=== PATIENT | female | born 1995 | race Caucasian/White ===

== ENCOUNTER 2017-05-02 02:00 | Inpatient (IN) | payer OTHER ==
[2017-05-02 02:29] LABS: APPEARANCE,URINE CLEAR; BILIRUBIN,URINE NEGATIVE (NEGATIVE); GLUCOSE, URINE NEGATIVE (NEGATIVE); KETONES,URINE NEGATIVE (NEGATIVE); LEUKOCYTE ESTERASE,URINE NEGATIVE (NEGATIVE); NITRITE,URINE NEGATIVE (NEGATIVE); PROTEIN,URINE NEGATIVE (NEGATIVE); URINE SPECIFIC GRAVITY 1.004; UROBILINOGEN,URINE NEGATIVE mg/dL (<2.0)
[2017-05-02 02:50] LABS: URINE BARBITURATES SCREEN NEGATIVE; URINE METHADONE SCREEN NEGATIVE; URINE OPIATES LOW NEGATIVE; URINE PHENCYCLIDINE SCREEN NEGATIVE
[2017-05-02] MEDS ORDERED: RINGERS SOLUTION,LACTATED 300 ML IV ONE (03:48)
[2017-05-02] MEDS ORDERED: MISOPROSTOL 0.1 MG TABLET PV SCH (04:00)
[2017-05-02 04:06] LABS: ABSOLUTE BASOPHILS # (AUTO) 0.1 10^3/uL (0.0-0.2); ABSOLUTE EOSINOPHILS # (AUTO) 0.1 10^3/uL (0.0-0.6); ABSOLUTE LYMPHOCYTES (AUTO) 2.6 10^3/uL (0.5-4.7); ABSOLUTE MONOCYTES (AUTO) 1.1 10^3/uL (0.1-1.4); BASOPHILS % (AUTO) 0.6 % (0-2); EOSINOPHILS % (AUTO) 0.7 % (0-6); HEMATOCRIT 35.4 % (36.0-47.0); HEMOGLOBIN 11.9 g/dL (12.0-15.5); HGB HCT DIFFERENCE 0.3; LYMPHOCYTES % (AUTO) 17.3 % (13-45); MEAN CORPUSCULAR HEMOGLOBIN 29.7 pg (27.0-33.4); MEAN CORPUSCULAR HGB CONC 33.5 g/dL (32.0-36.0); MEAN CORPUSCULAR VOLUME 88 fl (80-97); MONOCYTES % (AUTO) 7.5 % (3-13); RED BLOOD COUNT 4.01 10^6/uL (3.72-5.28); RED CELL DISTRIBUTION WIDTH 13.7 % (11.5-14.0); SEGMENTED NEUTROPHILS % (AUTO) 73.9 % (42-78); WHITE BLOOD COUNT 14.8 10^3/uL (4.0-10.5)
[2017-05-02] MEDS ORDERED: MISOPROSTOL 0.1 MG TABLET ONE (04:11)
[2017-05-02] MEDS: RINGERS SOLUTION,LACTATED 1,000 ML IV PRN ×2 (04:17→20:11)
[2017-05-02] MEDS ORDERED: BENZOIN/ALOE VERA/STORAX/TOLU TINCTURE 60 ML TP ONE (08:09)
[2017-05-02] MEDS ORDERED: BUPIVACAINE HCL 0.25 % INJ/PF (2.5 MG/1 ML) 30 ML VIAL INFIL ONE (08:09)
[2017-05-02] MEDS ORDERED: NALBUPHINE HCL INJ 10 MG/1 ML AMPULE ONE (08:24)
[2017-05-02] MEDS ORDERED: OXYTOCIN/NORMAL SALINE 20 UNIT/1,000 ML RTUINJ ONE ×2 (08:42→18:01)
[2017-05-02] MEDS: OXYTOCIN/NORMAL SALINE 1,000 ML IV PRN ×2 (09:00→20:13)
--- NOTE | 2017-05-02 10:37 | L&D Progress Notes ---
PROGRESS NOTES Datetime Report Generated by CPN: 05/02/2017 10:36 PROGRESS NOTE Impression: Reassuring Heart Rate Plan: Continue Present Management; Induction Vital Signs : Reviewed; Within Normal Limits Comment: OOB on ball, breathing with UC's, Cat 1 strip Hsb sleeping in chair Irreg uc's FETUS A FHR - Baseline: 120 Monitoring: External US Variability: Moderate 6-25bpm Accelerations: 15X15 Decelerations: None SIGNATURE SIGNATURE: [id number] Assignment: Kamille Russell MD Signature: with User ID: Stephen : with User ID: [email or web address]
[2017-05-02] MEDS ORDERED: EPHEDRINE SULFATE INJ 50 MG/1 ML AMPULE ONE ×2 (11:51→11:53)
[2017-05-02] MEDS ORDERED: FENTANYL/BUPIVACAINE/NS/PF 200 MCG/100 ML RTUINJ EPI ONE (11:51)
[2017-05-02] MEDS ORDERED: FENTANYL CITRATE INJ/PF 100 MCG/2 ML AMPUL ONE ×3 (11:52→19:45)
[2017-05-02] MEDS ORDERED: PHENYLEPHRINE HCL INJ/PF 10 MG/1 ML SDV ONE (11:53)
--- NOTE | 2017-05-02 12:59 | L&D Progress Notes ---
PROGRESS NOTES Datetime Report Generated by CPN: 05/02/2017 12:58 PROGRESS NOTE Impression: Normal Progression of Labor; Reassuring Heart Rate Procedures: Epidural Placement Plan: Continue Present Management; Induction Vital Signs : Reviewed; Within Normal Limits Comment: Getting epidural, Cat 1 strip, last exam 5cm, uc's q 2-3 min, has tolerated labor well FETUS A FHR - Baseline: 120 Monitoring: External US Variability: Moderate 6-25bpm Accelerations: 15X15 Decelerations: None FETUS C SIGNATURE: [id number] Assignment: Kamille Russell MD Signature: with User ID: Stephen : with User ID: Stephen
[2017-05-02] MEDS ORDERED: MISOPROSTOL 0.2 MG TABLET ONE ×2 (14:10→18:25)
[2017-05-02] MEDS ORDERED: LIDOCAINE 1% INJ-PF (10 MG/ML) 30 ML SDV ONE (14:11)
--- NOTE | 2017-05-02 14:12 | L&D Progress Notes ---
PROGRESS NOTES Datetime Report Generated by CPN: 05/02/2017 14:12 PROGRESS NOTE Impression: Normal Progression of Labor; Reassuring Heart Rate Plan: Continue Present Management Vital Signs : Reviewed; Within Normal Limits Comment: comfortable with epidural, AROM clear fluid, 8100/vtx/-1 had several late decelerations, position changed, Pitocin stopped, moderate variability Decelerations resolved, pt. feeling more pressure, comfortable with epidural FETUS A Monitoring: External US Decelerations: Early; Late FHR Category: Category II FETUS C SIGNATURE: [id number] Assignment: Kamille Russell MD Signature: with User ID: Stephen : with User ID: Stephen
[2017-05-02] MEDS ORDERED: LIDOCAINE 2%/EPINEPHRINE INJ 20 ML VIAL ONE ×2 (15:16→17:47)
[2017-05-02] MEDS ORDERED: SODIUM BICARBONATE 8.4% INJ 50 MEQ/50 ML DISP.SYRIN ONE (15:19)
[2017-05-02] MEDS ORDERED: METOCLOPRAMIDE HCL INJ/PF 10 MG/2 ML SDV ONE (17:47)
[2017-05-02] MEDS ORDERED: CITRIC ACID/SODIUM CITRATE ORAL SOLN 15 ML UDCUP ONE (17:47)
[2017-05-02] MEDS ORDERED: CEFAZOLIN 2 GM/D5W RTU 2 GM/50 ML RTUPB IV ONE (17:47)
--- NOTE | 2017-05-02 17:47 | L&D Progress Notes ---
PROGRESS NOTES Datetime Report Generated by CPN: 05/02/2017 17:46 PROGRESS NOTE Impression: Arrest of Dilatation/Descent Informed Consent Obtained: Section Delivery; Risks, Benefits and Alternatives Discussed Comment: Pt with vtx at 0 to +1 unchanged over greater than 1 hr of pushing and had been complete for an hour before starting pushing. Discussed r/b/a of and pt consents. FETUS C SIGNATURE: [id number] Signature: with User ID: [email or web address]
[2017-05-02] MEDS ORDERED: FAMOTIDINE INJ/PF 20 MG/2 ML SDV IV ONE (17:48)
[2017-05-02] MEDS ORDERED: ONDANSETRON HCL INJ/PF 4 MG/2 ML SDV ONE (18:01)
[2017-05-02] MEDS ORDERED: OXYTOCIN 10 UNIT/ML VIAL ONE (18:01)
[2017-05-02] MEDS ORDERED: MIDAZOLAM 2 MG/2 ML INJ ONE ×2 (18:50→19:01)
[2017-05-02] MEDS ORDERED: METHYLERGONOVINE MALEATE INJ/PF 0.2 MG/1 ML AMPULE ONE (19:14)
[2017-05-02] MEDS ORDERED: ACETAMINOPHEN 100 ML IV ONE (19:33)
--- NOTE | 2017-05-02 19:33 | Delivery Summary ---
Del Sum A-C Datetime Report Generated by CPN: 05/02/2017 19:32 DELIVERY PERSONNEL DELIVERY PERSONNEL: ,[id number] Delivery Doctor:: Kamille Russell MD Anesthesiologist:: Sue Ghotra MD TRAFFIC TECHNICIAN:: Ramon Gonzales TRAFFIC TECHNICIAN Labor and Delivery Nurse:: Elzbieta Teague RNcommissary officer Nurse:: Nikki Murphy RN Die Sinker Apprentice:: Nikki Murphy RN Gantry Rigger:: Rei Robertson MD Nursery Nurse:: Susy Forde RN Call Or Contact Centre Operator/BAKERY ASSOCIATE: Kishan Hannah CST Call Or Contact Centre Operator/BAKERY ASSOCIATE: Fanny Wise, ST MATERNAL INFORMATION Delivery Anesthesia: Epidural; Spinal Medications After Delivery: Pitocin Drip 20 Units/1000ml NSS; Methergine 0.2mg IM Meds After Delivery Comment: Cytotec 1000mcg Estimated Blood Loss (ml): 600 Maternal Complications: None LABOR SUMMARY EDC: 04/24/2017 00:00 No. Babies in Womb: 1 Attempted: No Labor Anesthesia: Epidural LABOR INFORMATION Reason for Induction: Post Dates Onset of Labor: 05/02/2017 11:00 Complete Dilatation: 05/02/2017 15:08 Cervical Ripening Agents: Cytotec @ Oxytocin: Induction Group B Beta Strep: Negative Antibiotics # of Doses: N?A Antibiotics Time of Last Dose: N/A Name of Antibiotic Given: N/A Steroids Given: None Reason Steroids Not Administered: Not Applicable MEMBRANES Membranes Rupture Method: Artificial Rupture of Membranes: 05/02/2017 13:03 Length of Rupture (hr): 5.68 Amniotic Fluid Color: Clear Amniotic Fluid Amount: Moderate Amniotic Fluid Odor: Normal STAGES OF LABOR Stage 1 hr: 4 Stage 1 min: 8 Stage 2 hr: 3 Stage 2 min: 36 Stage 3 hr: 0 Stage 3 min: 1 Total Time in Labor hr: 7 Total Time in Labor min: 45 VAGINAL DELIVERY Episiotomy: None Laceration Extension: N/A Laceration Type: None Laceration Repair: Not Applicable Sponge Count Correct: N/A Sharps Count Correct: N/A CSECTION DELIVERY Primary Indication: Arrest of Descent Secondary Indication: N/A CSection Urgency: Non-Scheduled CSection Incidence: Primary Labor: Labor Elective: N/A CSection Incision: Lower Uterine Transverse BABY A INFORMATION Delivery Date/Time: 05/02/2017 18:44 Method of Delivery: Vaginal Born in Route : No : N/A Forceps: N/A Vacuum Extraction: N/A Shoulder Dystocia : No PRESENTATION/POSITION BABY A Presentation: Cephalic Cephalic Presentation: Vertex Breech Presentation: N/A PLACENTA INFORMATION BABY A Placenta Delivery Time : 05/02/2017 18:45 Placenta Method of Delivery: Manual Removal Placenta Status: Delivered SCORES BABY A Heart Rate 1 min: >100 bpm Resp Effort 1 min: Good Cry Reflex Irritability 1 min: Cough or Sneeze or Pulls Away Muscle Tone 1 min: Active Motion Color 1 min: Body [place], Extremities Blue Resuscitation Effort 1 min: N/A SCORE 1 MIN: 9 Heart Rate 5 min: >100 bpm Resp Effort 5 min: Good Cry Reflex Irritability 5 min: Cough or Sneeze or Pulls Away Muscle Tone 5 min: Active Motion Color 5 min: Body [place], Extremities Blue Resuscitation Effort 5 min: N/A SCORE 5 MIN: 9 INFANT INFORMATION BABY A Gestational Age at Delivery: 41.1 Gestational Status: Late Term- 41- 41.6 Weeks Infant Outcome : Liveborn Infant Condition : Stable Infant Sex: Female IDENTIFICATION BABY A Infant Verification Date/Time: 05/02/2017 18:45 ID Band Number: [id number] Mother's Name Verified: Yes Infant RN Verifying Infant: Elzbieta Teague RN/ Raceland Baidy RN WEIGHT/LENGTH BABY A Birthweight (gm): 4120 Weight (lb): 9 Infant Weight (oz): 1 Length (in): 22.00 Infant Length (cm): 55.88 CORD INFORMATION BABY A No. Cord Vessels: 3 Nuchal Cord : N/A Cord Blood Taken: Yes-For Storage (Mom's Blood type +) Infant Suction: None; Mouth ASSESSMENT BABY A Complications: None Physical Findings at Delivery: Within Normal Limits Respirations: Appears Normal Skin to Skin: No Gantry Rigger/ALS Called : Yes Care By: Susy Forde RN Transferred To: [facility] BABY B INFORMATION : N/A
[2017-05-02] MEDS ORDERED: ACETAMINOPHEN 325 MG TABLET PO PRN (19:36)
[2017-05-02] MEDS ORDERED: OXYTOCIN/NORMAL SALINE 1,000 ML IV PRN (19:36)
[2017-05-02] MEDS ORDERED: MEASLES,MUMPS&RUBELLA VACC/PF 0.5 ML VIAL SUBCUT PRN (19:36)
[2017-05-02] MEDS ORDERED: PROMETHAZINE HCL INJ 25 MG/1 ML VIAL IV PRN (19:36)
[2017-05-02] MEDS ORDERED: DIPH/PERTUSS(ACELL)/TETANUS VAC/PF 0.5 ML SYR (>=10YO) IM PRN (19:36)
[2017-05-02] MEDS ORDERED: SIMETHICONE 80 MG TAB.CHEW PO PRN (19:36)
[2017-05-02] MEDS ORDERED: OXYCODONE-ACETAMINOPHEN 5-325 MG TABLET PO PRN (19:36)
[2017-05-02] MEDS: FENTANYL/BUPIVACAINE/NS/PF 100 ML EPI PRN ×2 (19:41→20:13)
[2017-05-02] MEDS ORDERED: MEPERIDINE HCL/PF INJ 25 MG/1 ML DISP.SYRIN ONE (19:45)
--- NOTE | 2017-05-02 20:00 | OPERATIVE REPORT E ---
Operative Report NAME: KATLYN SHERMAN : 1995 AGE: 21Y DATE OF SURGERY: 05/02/2017 ROOM: LR200 PREOPERATIVE DIAGNOSIS: Intrauterine at 41+ weeks with arrest of descent/CPD. POSTOPERATIVE DIAGNOSIS: Intrauterine at 41+ weeks with arrest of descent/CPD. OPERATION PERFORMED: Primary low-transverse cervical section. SURGEON: LACY HUFFMAN M.D. ANESTHESIA: Spinal. ESTIMATED BLOOD LOSS: 600 mL. SPECIMEN TO PATHOLOGY: Placenta. FINDINGS: Madrigal female infant vertex presentation, weight 4120 grams. Apgars were 9 and 9. Bladder was edematous, but there were otherwise normal uterus, tubes, and ovaries. DESCRIPTION OF PROCEDURE: After discussing risks, benefits, and alternatives of the procedure, the patient was taken to the operating room, where an epidural catheter was removed and spinal anesthesia obtained. She was positioned in the dorsal supine position with a leftward tilt and prepped and draped in the usual standard fashion. A Pfannenstiel skin incision was made, abdomen was entered in layers in the standard fashion. A low-transverse cervical incision was made. The surgeon's hand was entered into the hysterotomy incision and the vertex elevated up out of the pelvis and delivered. The shoulders and body delivered easily thereafter. Nasopharynx and oropharynx were bulb suctioned. Cord was clamped x2 and cut. Infant was handed to Pediatrics, who were present. Placenta was manually extracted. The uterus was exteriorized and cleared of all clots and debris. The uterus was initially quite atonic, therefore Methergine 1 amp was given by Anesthesia. The hysterotomy incision was closed in 2 layers with 0-Monocryl. This was done in a running, locked fashion. Excellent hemostasis was observed. Uterus, tubes, and ovaries were returned to the peritoneal cavity. The cavity was irrigated and hemostasis again assured. A layer of Interseed was placed in an inverted T fashion over the anterior aspect of the uterus in the lower uterine segment. The peritoneum was closed with 2-0 Vicryl in a running manner. The rectus muscles were loosely reapproximated with interrupted stitches of 2-0 Vicryl. The subfascial spaces were inspected and noted to be hemostatic. The fascia was closed with #1 Vicryl. Subcutaneous spaces were irrigated and noted to be hemostatic. Skin was closed in a subcuticular fashion with 3-0 Vicryl. An OpSite dressing was applied. The vagina was cleared of all clots and debris. There had been some clots in the lower uterine segment. The uterus firmed with massage. Cytotec was then placed - 1,000 mcg per rectum, again, to help maintain good uterine tone and prevent atonic bleeding. The patient was taken to recovery in a stable condition. All sponge, needle, lap, and instrument counts were correct x2. DICTATING PHYSICIAN: LACY HUFFMAN M.D. [id number] PHY#: [id number] ID: [id number] JOB#: [id number] ACCT: [id number] cc:LACY HUFFMAN M.D. >
--- NOTE | 2017-05-02 21:34 | Admission Physical ---
Datetime Report Generated by CPN: 05/02/2017 21:34 CURRENT ADMISSION Hx Assessment: The History has been Reviewed and is Current Chief Complaint: Scheduled Induction of Labor Indication for Induction: Post Dates Admit Plan: Admit to Unit; Initiate Labor Induction Protocol ALLERGIES Medication Allergies: No Medication Allergies: No Known Allergies (05/02/2017) Latex: No Latex Allergies Food Allergies: none Environmental Allergies: none OBSTETRICAL HISTORY EDC: 04/24/2017 00:00 : 1 Para: 0 Term: 0 : 0 SAB: 0 IAB: 0 Ectopic: 0 Livin Cesareans: 0 VBACs: 0 Multiple Births: 0 Gestational Diabetes: No Rh Sensitization: No Incompetent Cervix: No JUAN: No Infertility: No ART Treatment: No Uterine Anomaly: No IUGR: No Hx Previous C/S: No Macrosomia: No Hx Loss/Stillborn: No PIH: No Hx : No Placenta Previa/Abruption: No Depression/PP Depression: No PTL/PROM: No Post Hemorrhage: No Current Procedures: Ultrasound; NST Obstetrical History Comments: G1: Current SEE RECORDS Alcohol: No Marijuana : No Cocaine: No Other Illicit Drugs: No Cigarettes: Never Smoker. [id number] MEDICAL HISTORY Diabetes: No Blood Transfusion: No Pulmonary Disease (Asthma, TB): No Breast Disease: No Hypertension: No Clinical Implementation Specialist Surgery: No Heart Disease: No Hosp/Surgery: No Autoimmune Disorder: No Anesthetic Complications: No Kidney Disease: No Abnormal Pap Smear: No Neuro/Epilepsy: No Psychiatric Disorders: No Other Medical Diseases: No Hepatitis/Liver Disease: No Significant Family History: No Varicosities/Phlebitis: No Trauma/Violence : No Thyroid Dysfunction: No INFECTIOUS HISTORY Gonorrhea: No Genital Herpes: No Chlamydia: No Tuberculosis: No Syphilis: No Hepatitis: No HIV/AIDS Exposure: No Rash or Viral Illness: No HPV: No PHYSICAL EXAM General: Normal HEENT: Normal Neurologic: Normal Thyroid: Normal Heart: Normal Lungs: Normal Breast: Deferred Back: Normal Abdomen: Normal Genitourinary Exam: Normal Extremities: Normal DTRs: Normal Pelvic Type: Adequate Vital Signs: Reviewed; Within Normal Limits FETUS A EGA: 41.1 Monitoring: External US FHR- Baseline: 120 Variability: Moderate 6-25bpm Accelerations: 15X15 FHR Category: Category I Admit Comment: Admitted for IOL, having UC's, cytotec placed, Pitocin started Epidural placed and AROM , clear fluid. Plan: EFW = 9-7 on 17 PLANS FOR LABOR AND DELIVERY Labor and Delivery: Plan Pain Management: Epidural Feeding Preference: Both Benefit of Breast Feed Discussed: Yes Circumcision: N/A INFORMED CONSENT Informed Consent Obtained: Section Delivery; Risks, Benefits and Alternatives Discussed Assignment: Kamille Russell MD Signature: with User ID: [email or web address] : with User ID: [email or web address]
[2017-05-02] MEDS ORDERED: HYDROMORPHONE HCL INJ/PF 2 MG/ML AMPULE ONE (22:15)
[2017-05-02] MEDS ORDERED: HYDROMORPHONE HCL INJ/PF 2 MG/ML AMPULE IV PRN ×2 (22:23→22:24)
[2017-05-02] MEDS: CEFAZOLIN 1 GM/D5W RTU 1 GM/50 ML RTUPB IV SCH (23:41)
[2017-05-03] MEDS: OXYCODONE-ACETAMINOPHEN 5-325 MG TABLET PO PRN ×4 (03:10→22:07)
[2017-05-03] MEDS ORDERED: IBUPROFEN 800 MG TABLET PO SCH (06:00)
[2017-05-03] MEDS: CEFAZOLIN 1 GM/D5W RTU 1 GM/50 ML RTUPB IV SCH ×3 (06:06→17:32)
[2017-05-03 06:38] LABS: HEMATOCRIT 30.2 % (36.0-47.0); HEMOGLOBIN 10.1 g/dL (12.0-15.5); HGB HCT DIFFERENCE 0.1; MEAN CORPUSCULAR HEMOGLOBIN 29.8 pg (27.0-33.4); MEAN CORPUSCULAR HGB CONC 33.5 g/dL (32.0-36.0); MEAN CORPUSCULAR VOLUME 89 fl (80-97); RED CELL DISTRIBUTION WIDTH 14.1 % (11.5-14.0); WHITE BLOOD COUNT 19.7 10^3/uL (4.0-10.5)
[2017-05-03] MEDS: PRENATAL VITAMIN W-O CA NO5/FE FUMARATE/FA CAPSULE PO SCH (08:39)
[2017-05-03] MEDS: DOCUSATE SODIUM 100 MG CAPSULE PO SCH ×2 (08:39→17:32)
--- NOTE | 2017-05-03 09:45 | PDOC PROGRESS REPORT ---
Subjective-OB Subjective: Post Delivery Day: 1 21 year old. Denies any needs at this time, eating breakfast, bonding with baby. States pain is well controlled, folley intact. Lochia is stable. Physical Exam (OB) Vital Signs: Temp Pulse Resp BP Pulse Ox 98.3 F 102 H 18 124/84 98 05/03/17 08:20 05/03/17 08:20 05/03/17 08:20 05/03/17 08:20 05/03/17 08:20 Intake & Output 05/02/17 05/03/17 05/04/17 06:59 06:59 06:59 Intake Total 1750 Output Total 1800 Balance -50 Weight 74.3 kg - Dressing Removed: No - honeycomb post op dressing Incision: Dressing, Draining - Lochia Lochia Amount: Scant < 10 ml Lochia Color: Rubra/Red - Abdomen Description: Tender, Soft, Flat Hernia Present: No Fundal Description: Firm, Midline Fundal Height: u/u - u/2 Objective-Diagnostic Laboratory: 05/03/17 05:43 05/03/17 05:43 WBC 19.7 H RBC 3.40 L Hgb 10.1 L Hct 30.2 L MCV 89 MCH 29.8 MCHC 33.5 RDW 14.1 H Plt Count 116 L Assessment and Plan(PN) - Assessment and Plan (1) Acute blood loss anemia Is this a current diagnosis for this admission?: YesPlan: ferrous sulfate increase dietary iron (2) Delivery by emergency caesarean section Is this a current diagnosis for this admission?: YesPlan: routine post op care - Time Spent with Patient Time with patient: Less than 15 minutes Critical Time spent with patient: Less than 15 minutes Medications reviewed and adjusted accordingly: Yes - Disposition Anticipated Discharge: Home Within: within 24 hours
[2017-05-03] MEDS: KETOROLAC TROMETHAMINE INJ/PF 30 MG/1 ML SDV IV SCH ×2 (14:01→21:31)
[2017-05-03] MEDS: RINGERS SOLUTION,LACTATED 1,000 ML IV PRN (14:15)
[2017-05-04] MEDS: KETOROLAC TROMETHAMINE INJ/PF 30 MG/1 ML SDV IV SCH (05:28)
[2017-05-04 06:54] LABS: HEMATOCRIT 27.9 % (36.0-47.0); HEMOGLOBIN 9.3 g/dL (12.0-15.5); MEAN CORPUSCULAR HEMOGLOBIN 29.6 pg (27.0-33.4); MEAN CORPUSCULAR HGB CONC 33.2 g/dL (32.0-36.0); MEAN CORPUSCULAR VOLUME 89 fl (80-97); RED BLOOD COUNT 3.13 10^6/uL (3.72-5.28); RED CELL DISTRIBUTION WIDTH 14.2 % (11.5-14.0); WHITE BLOOD COUNT 14.3 10^3/uL (4.0-10.5)
[2017-05-04] MEDS: DOCUSATE SODIUM 100 MG CAPSULE PO SCH (09:18)
[2017-05-04] MEDS: PRENATAL VITAMIN W-O CA NO5/FE FUMARATE/FA CAPSULE PO SCH (09:19)
[2017-05-04] MEDS: OXYCODONE-ACETAMINOPHEN 5-325 MG TABLET PO PRN (11:56)
[2017-05-04 12:45] VITALS: BP 136/72
--- NOTE | 2017-05-04 13:22 | PDOC DISCHARGE SUMMARY ---
Final Diagnosis Discharge Date: 05/04/17 - Final Diagnosis (1) Acute blood loss anemia Is this a current diagnosis for this admission?: Yes (2) Delivery by emergency caesarean section Is this a current diagnosis for this admission?: Yes Discharge Data - Discharge Medication Home Medications: Vit/Iron Fumarate/FA [ Tablet] 1 tab PO DAILY 05/02/17 Reason(s) for Admission: Induction of Labor Intrapartum Procedure(s): : Low Cervical, Transverse - Diagnosis Test Laboratory: Temp Pulse Resp BP Pulse Ox 98.2 F 82 18 136/72 H 97 05/04/17 12:00 05/04/17 12:00 05/04/17 12:00 05/04/17 12:00 05/04/17 12:00 05/02/17 05/02/17 05/03/17 02:11 03:57 05:43 RBC 4.01 3.40 L Hgb 11.9 L 10.1 L Hct 35.4 L 30.2 L Urine Opiates Screen NEGATIVE 05/04/17 06:04 RBC 3.13 L Hgb 9.3 L Hct 27.9 L Urine Opiates Screen - Discharge information/Instructions Discharge Activity: Activity As Tolerated Discharge Diet: Regular Disposition: HOME, SELF-CARE Follow up with: [facility] in: 1
== END 2017-05-04 16:51 | disposition home or self-care (01) | DRG 765 ==
LOC: LC 02:00 → LR 03:45 → 2N 21:31
PROVIDERS: ADMIT Specialist; ATTEND Specialist
PROC: 10D00Z1 Extraction of Products of Conception, Low, Open Approach (ICD-10-PCS; principal; 2017-05-02)
DX: O48.0 Post-term pregnancy (principal); D62 Acute posthemorrhagic anemia; O62.1 Secondary uterine inertia; O99.02 Anemia complicating childbirth; O76 Abnormality in fetal heart rate and rhythm complicating labor and delivery; Z3A.41 41 weeks gestation of pregnancy; Z37.0 Single live birth
CPT/HCPCS: 1961; 36415; 80307; 81005; 85025; 85027; 86592; 86850; 86900; 86901; 88307; 94799; C1765; J0131; J0690; J1170; J1885; J2175; J2210; J2250; J2300; J2370; J2405; J2590; J2765; J3010; J3490; J7120; S0028

== ENCOUNTER → 2017-05-05 | Outpatient (CLI) | payer OTHER ==
[~2017-05-05] MED LIST: ACETAMINOPHEN 100 ML IV ONE; KETOROLAC TROMETHAMINE INJ/PF 30 MG/1 ML SDV ONE
== END ==
LOC: ASU 15:24
PROVIDERS: ATTEND Anesthesiology
PROC: 3E0R3GC Introduction of Other Therapeutic Substance into Spinal Canal, Percutaneous Approach (ICD-10-PCS; principal; 2017-05-05)
DX: O89.4 Spinal and epidural anesthesia-induced headache during the puerperium (principal); G97.1 Other reaction to spinal and lumbar puncture; Y84.4 Aspiration of fluid as the cause of abnormal reaction of the patient, or of later complication, without mention of misadventure at the time of the procedure
CPT/HCPCS: 62273; J1885; J0131